=== PATIENT | female | born 1985 | race Caucasian/White ===

== ENCOUNTER 2018-02-25 11:50 | Emergency (ER) | payer OTHER, MEDICAID ==
--- NOTE | 2018-02-25 13:13 | ER Document Report ---
ED Headache - General Chief Complaint: Headache Stated Complaint: HEADACHE Time Seen by Provider: 02/25/18 13:12 TRAVEL OUTSIDE OF THE [place] IN LAST 30 DAYS: No - Related Data Allergies/Adverse Reactions: bee stings Allergy (Severe, Uncoded 02/25/18 11:51) Shortness of Breath seasonal Allergy (Severe, Uncoded 02/25/18 11:51) sinuses Past Medical History - Past Medical History Cardiac Medical History: Denies: Hx Coronary Artery Disease, Hx Heart Attack, Hx Hypertension, Hx Pulmonary Embolism, Hx Heart Murmur Pulmonary Medical History: Denies: Hx Asthma, Hx Bronchitis, Hx COPD, Hx Pneumonia, Hx Sleep Apnea, Hx Tuberculosis Neurological Medical History: Reports: Hx Seizures - last 2000. Denies: Hx Cerebrovascular Accident Endocrine Medical History: Reports: Hx Hypothyroidism. Denies: Hx Hyperthyroidism Renal/ Medical History: Denies: Hx Kidney Stones, Hx Ovarian Cysts, Hx Pelvic Inflammatory Disease Malignancy Medical History: Denies: Hx Breast Cancer, Hx Cervical Cancer, Hx Ovarian Cancer GI Medical History: Denies: Hx Gastroesophageal Reflux Disease, Hx Hiatal Hernia , Hx Ulcer Musculoskeletal Medical History: Denies Hx Arthritis, Denies Hx Fibromyalgia Psychiatric Medical History: Denies: Hx Bipolar Disorder, Hx Depression, Hx Post Traumatic Stress Disorder , Hx Schizophrenia Traumatic Medical History: Denies: Hx Fractures Infectious Medical History: Denies: Hx HIV Past Surgical History: Denies: Hx Hysterectomy - Immunizations Hx Diphtheria, Pertussis, Tetanus Vaccination: Yes Physical Exam - Vital signs Vitals: Temp Pulse Resp BP Pulse Ox 97.7 F 74 18 143/91 H 100 02/25/18 11:59 02/25/18 11:59 02/25/18 11:59 02/25/18 11:59 02/25/18 11:59 Course - Vital Signs Vital signs: Temp Pulse Resp BP Pulse Ox 97.7 F 74 18 143/91 H 100 02/25/18 11:59 02/25/18 11:59 02/25/18 11:59 02/25/18 11:59 02/25/18 11:59 Discharge - Discharge Referrals: SEYMOUR GOODE PA-C [Primary Care Provider] - Follow up as needed
--- NOTE | 2018-02-25 13:21 | ER Document Report ---
ED Medical Screen (RME) - General Chief Complaint: Headache Stated Complaint: HEADACHE Time Seen by Provider: 02/25/18 13:12 Notes: 32-year-old female complaining of headache frontal region. Symptoms have been present now for 3 days. Went to primary care doctor and was sent here for evaluation and a head CT. Patient states that she has never had a headache like this before. Does get headaches but usually she is able to treat it with 1600 mg of ibuprofen. She states that the headache is not the worst headache of her life but it is the only time she has not been able to get a headache to go away with ibuprofen. Also states that she has had several mosquito bites and has been a little dizzy and unsteady on her feet. I have greeted and performed a rapid initial assessment of this patient. A comprehensive ED assessment and evaluation of the patient, analysis of test results and completion of the medical decision making process will be conducted by additional ED providers. TRAVEL OUTSIDE OF THE [place] IN LAST 30 DAYS: No - Related Data Allergies/Adverse Reactions: bee stings Allergy (Severe, Uncoded 02/25/18 11:51) Shortness of Breath seasonal Allergy (Severe, Uncoded 02/25/18 11:51) sinuses Past Medical History - Past Medical History Cardiac Medical History: Denies: Hx Coronary Artery Disease, Hx Heart Attack, Hx Hypertension, Hx Pulmonary Embolism, Hx Heart Murmur Pulmonary Medical History: Denies: Hx Asthma, Hx Bronchitis, Hx COPD, Hx Pneumonia, Hx Sleep Apnea, Hx Tuberculosis Neurological Medical History: Reports: Hx Seizures - last 2000. Denies: Hx Cerebrovascular Accident Endocrine Medical History: Reports: Hx Hypothyroidism. Denies: Hx Hyperthyroidism Renal/ Medical History: Denies: Hx Kidney Stones, Hx Ovarian Cysts, Hx Pelvic Inflammatory Disease Malignancy Medical History: Denies: Hx Breast Cancer, Hx Cervical Cancer, Hx Ovarian Cancer GI Medical History: Denies: Hx Gastroesophageal Reflux Disease, Hx Hiatal Hernia , Hx Ulcer Musculoskeltal Medical History: Denies Hx Arthritis, Denies Hx Fibromyalgia Psychiatric Medical History: Denies: Hx Bipolar Disorder, Hx Depression, Hx Post Traumatic Stress Disorder , Hx Schizophrenia Traumatic Medical History: Denies: Hx Fractures Infectious Medical History: Denies: Hx HIV Past Surgical History: Denies: Hx Hysterectomy - Immunizations Hx Diphtheria, Pertussis, Tetanus Vaccination: Yes Physical Exam - Vital signs Vitals: Temp Pulse Resp BP Pulse Ox 97.7 F 74 18 143/91 H 100 02/25/18 11:59 02/25/18 11:59 02/25/18 11:59 02/25/18 11:59 02/25/18 11:59 Course - Vital Signs Vital signs: Temp Pulse Resp BP Pulse Ox 97.7 F 74 18 143/91 H 100 02/25/18 11:59 02/25/18 11:59 02/25/18 11:59 02/25/18 11:59 02/25/18 11:59 Doctor's Discharge - Discharge Referrals: SEYMOUR GOODE PA-C [NO LOCAL MD] - Follow up as needed
[2018-02-25 14:10] LABS: ABSOLUTE BASOPHILS # (AUTO) 0.1 10^3/uL (0.0-0.2); ABSOLUTE LYMPHOCYTES (AUTO) 2.1 10^3/uL (0.5-4.7); ABSOLUTE MONOCYTES (AUTO) 0.7 10^3/uL (0.1-1.4); ABSOLUTE NEUT (AUTO) 5.4 10^3/uL (1.7-8.2); BASOPHILS % (AUTO) 0.7 % (0-2); EOSINOPHILS % (AUTO) 0.4 % (0-6); HEMATOCRIT 38.2 % (36.0-47.0); HEMOGLOBIN 12.8 g/dL (12.0-15.5); LYMPHOCYTES % (AUTO) 25.2 % (13-45); MEAN CORPUSCULAR HEMOGLOBIN 29.9 pg (27.0-33.4); MEAN CORPUSCULAR HGB CONC 33.6 g/dL (32.0-36.0); MEAN CORPUSCULAR VOLUME 89 fl (80-97); PLATELET COUNT 290 10^3/uL (150-450); RED BLOOD COUNT 4.29 10^6/uL (3.72-5.28); RED CELL DISTRIBUTION WIDTH 13.4 % (11.5-14.0); SEGMENTED NEUTROPHILS % (AUTO) 65.7 % (42-78); TOTAL CELLS COUNTED % (AUTO) 100 %; WHITE BLOOD COUNT 8.2 10^3/uL (4.0-10.5)
--- NOTE | 2018-02-25 14:13 | RADIOLOGY REPORT (SQ) ---
EXAM DESCRIPTION: CT HEAD WITHOUT COMPLETED DATE/TIME: 02/25/2018 2:03 pm REASON FOR STUDY: headache, dizziness, bug bites COMPARISON: None. TECHNIQUE: Axial images acquired through the brain without intravenous contrast. Images reviewed wi th bone, brain and subdural windows. Additional sagittal and coronal reconstructions were generated. Images stored on PACS. All CT scanners at this facility use dose modulation, iterative reconstruction, and/or weight based d osing when appropriate to reduce radiation dose to as low as reasonably achievable (ALARA). [facility]: Dose Right [facility]: CareDose [facility]: Dose Right [facility]: Teradose 4D [facility]: Smart [employer] RADIATION DOSE: CT Rad equipment meets quality standard of care and radiation dose reduction techniq ues were employed. CTDIvol: 53.2 mGy. DLP: 1017 mGy-cm. mGy. LIMITATIONS: None. FINDINGS: VENTRICLES: Normal size and contour. CEREBRUM: No masses. No hemorrhage. No midline shift. No evidence for acute infarction. Normal gra y/white matter differentiation. No areas of low density in the white matter. CEREBELLUM: No masses. No hemorrhage. No alteration of density. No evidence for acute infarction. EXTRAAXIAL SPACES: No fluid collections. No masses. ORBITS AND GLOBE: No intra- or extraconal masses. Normal contour of globe without masses. CALVARIUM: No fracture. PARANASAL SINUSES: No fluid or mucosal thickening. SOFT TISSUES: No mass or hematoma. OTHER: No other significant finding. IMPRESSION: NORMAL BRAIN CT WITHOUT CONTRAST. EVIDENCE OF ACUTE STROKE: NO. COMMENT: Quality ID # [id number]: Final reports with documentation of one or more dose reduction techniques (e.g., Automated exposure control, adjustment of the mA and/or kV according to patient size, use of iterative reconstruction technique) TECHNICAL DOCUMENTATION: JOB ID: [id number] [employer]- All Rights Reserved Reading location - IP/workstation name: [email or web address]
[2018-02-25 14:16] LABS: APPEARANCE,URINE SLIGHTLY-CLOUDY; BILIRUBIN,URINE NEGATIVE (NEGATIVE); COLOR,URINE YELLOW; GLUCOSE, URINE NEGATIVE (NEGATIVE); KETONES,URINE NEGATIVE (NEGATIVE); LEUKOCYTE ESTERASE,URINE NEGATIVE (NEGATIVE); NITRITE,URINE NEGATIVE (NEGATIVE); PROTEIN,URINE NEGATIVE (NEGATIVE); UROBILINOGEN,URINE NEGATIVE mg/dL (<2.0)
[2018-02-25 14:41] LABS: ALANINE AMINOTRANSFERASE 22 U/L (9-52); ALBUMIN 4.2 g/dL (3.5-5.0); ALKALINE PHOSPHATASE 71 U/L (38-126); ANION GAP 9 (5-19); ASPARTATE AMINO TRANSFERASE 21 U/L (14-36); BILIRUBIN,DIRECT 0.3 mg/dL (0.0-0.4); BILIRUBIN,TOTAL 0.5 mg/dL (0.2-1.3); BLOOD UREA NITROGEN 12 mg/dL (7-20); CALCIUM 8.9 mg/dL (8.4-10.2); CARBON DIOXIDE 28 mmol/L (22-30); CHLORIDE 103 mmol/L (98-107); GLUCOSE 87 mg/dL (75-110); SODIUM 140.3 mmol/L (137-145); TOTAL PROTEIN 7.2 g/dL (6.3-8.2)
--- NOTE | 2018-02-25 15:54 | ER Document Report ---
ED Headache - General Chief Complaint: Headache Stated Complaint: HEADACHE Time Seen by Provider: 02/25/18 13:12 Mode of Arrival: Ambulatory Information source: Patient Notes: 31-year-old female presented to ED for complaint of headaches start in the front of her head and go across the top of her head. She states she has been having the headaches now off and on for 3 days. She went to her primary care doctor who sent her to the ER for head CT. She states she has never had a headache like this before. She states she just is normal regular headaches. She states she took 1600 mg of ibuprofen this morning. She states she is already been told several times not to take that much of her again. She states she felt a little dizzy and unsteady on her feet. But she was alert and oriented pupils equal and react to light and steady on her feet when I assessed her. TRAVEL OUTSIDE OF THE [place] IN LAST 30 DAYS: No - HPI Patient complains to provider of: Headache Patient reports: Prior neurologic eval - She used to go to a neurologist for seizures in 2000 but has not been back since then has not had any seizures since then., Other - States she has frequent headaches but they are normal headaches. Onset: Other - We days Onset was: Other - Intermittent Timing: Still present Quality of pain: Sharp, Throbbing Severity: Moderate Pain Level: 3 Associated symptoms: Dizzy. denies: Speech problems, Stiff neck Exacerbated by: Light, Noise, Movement Similar symptoms previously: Yes Recently seen / treated by doctor: Yes - Related Data Allergies/Adverse Reactions: bee stings Allergy (Severe, Uncoded 02/25/18 11:51) Shortness of Breath seasonal Allergy (Severe, Uncoded 02/25/18 11:51) sinuses Past Medical History - General Information source: Patient - Social History Smoking Status: Former Smoker Cigarette use (# per day): No Chew tobacco use (# tins/day): No Smoking Education Provided: No Frequency of alcohol use: Social Drug Abuse: None Occupation: ldr rn Lives with: Family Family History: Reviewed & Not Pertinent Patient has suicidal ideation: No Patient has homicidal ideation: No - Past Medical History Cardiac Medical History: Reports: None Pulmonary Medical History: Reports: None EENT Medical History: Reports: Eyes - Corneal erosion Neurological Medical History: Reports: Hx Seizures - last 2000 Endocrine Medical History: Reports: Hx Hypothyroidism Renal/ Medical History: Reports: None Malignancy Medical History: Reports: Other - thyroid dcancer GI Medical History: Reports: Other Musculoskeletal Medical History: Reports None Skin Medical History: Reports None Psychiatric Medical History: Reports: None Traumatic Medical History: Reports: None Past Surgical History: Reports: Hx Section, Hx Oral Surgery - [place] teeth, Hx Thyroid Surgery - I were removed due to thyroid cancer, Other - Lymph node removed - Immunizations Immunizations up to date: Yes Hx Diphtheria, Pertussis, Tetanus Vaccination: Yes Review of Systems - Review of Systems Constitutional: No symptoms reported EENT: No symptoms reported Cardiovascular: Dizziness Respiratory: No symptoms reported Gastrointestinal: Nausea Genitourinary: No symptoms reported Female Genitourinary: No symptoms reported Musculoskeletal: No symptoms reported Skin: No symptoms reported Hematologic/Lymphatic: No symptoms reported Neurological/Psychological: Headaches -: Yes All other systems reviewed and negative Physical Exam - Vital signs Vitals: Temp Pulse Resp BP Pulse Ox 97.7 F 74 18 143/91 H 100 02/25/18 11:59 02/25/18 11:59 02/25/18 11:59 02/25/18 11:59 02/25/18 11:59 Interpretation: Normal - General General appearance: Appears well, Alert - HEENT Head: Normocephalic, Atraumatic Eyes: Normal Pupils: PERRL Visual larson normal: Yes Ears: Normal External canal: Normal Tympanic membrane: Normal Sinus: Normal Nasal: Normal Mouth/Lips: Normal Mucous membranes: Normal Pharynx: Normal Neck: Normal - Respiratory Respiratory status: No respiratory distress Chest status: Nontender Breath sounds: Normal Chest palpation: Normal - Cardiovascular Rhythm: Regular Heart sounds: Normal auscultation Murmur: No - Abdominal Inspection: Normal Distension: No distension Bowel sounds: Normal Tenderness: Nontender Organomegaly: No organomegaly - Back Back: Normal, Nontender - Extremities General upper extremity: Normal inspection, Nontender, Normal color, Normal ROM , Normal temperature General lower extremity: Normal inspection, Nontender, Normal color, Normal ROM , Normal temperature, Normal weight bearing. No: Rema's sign - Neurological Neuro grossly intact: Yes Cognition: Normal Orientation: AAOx4 [place] Coma Scale Eye Opening: Spontaneous Fang Coma Scale Verbal: Oriented Fang Coma Scale Motor: Obeys Commands [place] Coma Scale Total: 15 Speech: Normal Cranial nerves: Normal Motor strength normal: LUE, RUE, LLE, RLE Additional motor exam normals: Equal acid correction hand Babinski reflex: Normal (flexor plantar) Sensory: Normal Biceps - Reflex grade: 2 = Normal Triceps - Reflex grade: 2 = Normal Brachioradialis - Reflex grade: 2 = Normal Ankle - Reflex grade: 2 = Normal - Psychological Associated symptoms: Normal affect, Normal mood - Skin Skin Temperature: Warm Skin Moisture: Dry Skin Color: Normal Course - Re-evaluation Re-evalutation: 02/25/18 16:08 Patient stated that she just needed something for her headache as long as her labs and CT were negative. 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 I offered the patient comes in Benadryl and Toradol IV if she could get a driver license examiner. She states she does not have a driver license examiner she needs some she can take home. I wrote her prescription for Compazine with instructions to take it with Benadryl and ibuprofen. I instructed her to please return to the ED if this did not relieve her headache. Patient verbalized understanding of instruction and agreement with treatment plan. - Vital Signs Vital signs: Temp Pulse Resp BP Pulse Ox 97.7 F 74 18 143/91 H 100 02/25/18 11:59 02/25/18 11:59 02/25/18 11:59 02/25/18 11:59 02/25/18 11:59 - Laboratory Result Diagrams: 02/25/18 13:47 02/25/18 13:47 - Diagnostic Test Radiology reviewed: Image reviewed, Reports reviewed Discharge - Discharge Clinical Impression: Headache Qualifiers: Headache type: unspecified Headache chronicity pattern: chronic headache Intractability: not intractable Qualified Code(s): R51 - Headache Condition: Stable Disposition: HOME, SELF-CARE Instructions: Use of Noce-Bom-Fdtyqcn Ibuprofen ([facility]) Additional Instructions: HEADACHE: The physician does not feel that the headache you are experiencing has a serious underlying cause. Most headaches are due to emotional stress, with resultant muscle tension (tension headache). Occasionally, headaches are secondary to changes in the blood vessels of the scalp (vascular headache and migraine headache). Sometimes, a headache is the first symptom of another developing illness, such as a viral infection. You have no evidence of stroke, bleeding, meningitis, or other serious cause of your headache. The treatment of headaches varies with the severity and cause of the pain. Not all headaches need pain shots. In fact, there is evidence that using narcotics for headaches may make them worse in the long run. The physician will determine the therapy that's in your best interest. If you develop a fever, if the headache is different from any you've previously experienced, or if the headache progressively worsens, then call your physician at once or go to the emergency room. USE OF DIPHENHYDRAMINE: Diphenhydramine (Benadryl) is an antihistamine and has been recommended to help treat your headache and to prevent side effects of other medications used to treat headaches. The medication can be repeated four times daily. Age Elixir (12.5 mg/tsp) 25 mg pill adult 1-2 tabs Antihistamines may cause drowsiness, especially with the first dose. Do not operate machinery or drive while under the effects of the medication. Do not combine the medication with alcohol, or with any other medication without talking to your doctor. ANTINAUSEA MEDICATION: You have been given a medication to suppress nausea and vomiting. This type of medication can be given as a shot, pill, or suppository. It will usually last for many hours. Pills and shots usually last six to eight hours, suppositories last about 12 hours. For the typical illness, only one or two doses of the medication may be necessary. Mild lightheadedness may occur. This type of medicine can cause drowsiness. Do not drive or operate dangerous machinery while under its influence. Do not mix with alcohol. See your doctor at once if you have muscle spasms or tightness, or uncontrollable motions (particularly of the neck, mouth, or jaw). Persistent vomiting or severe lightheadedness should also be evaluated by the physician. COMPAZINE FOR HEADACHE: You have received therapy for headaches, using Compazine. This treatment is dramatically successful in relieving the headache in about 50 percent of cases. When it works, it provides a rapid method of eliminating the headache without resorting to narcotics (and the problems associated with them). Most patients still feel fully alert after the Compazine, but others may be slightly drowsy. It's best not to drive or work with machinery for six to eight hours. Do not take alcohol or other medication unless you discuss it with the doctor. If you develop tightness and spasms in your muscles, especially the neck and tongue, you should return. This is a side effect which can be treated. Please did not ever take more than 800 mg of ibuprofen at a time and no more than 2400 mg in a 24 hour. FOLLOW-UP CARE: If you have been referred to a physician for follow-up care, call the physician s office for an appointment as you were instructed or within the next two days. If you experience worsening or a significant change in your symptoms, notify the physician immediately or return to the Emergency Department at any time for re-evaluation. Prescriptions: Prochlorperazine Maleate [Compazine 10 mg Tablet] 10 mg PO Q6HP PRN #10 tablet PRN Reason: Forms: Elevated Blood Pressure, Return to Work Referrals: SEYMOUR GOODE PA-C [NO LOCAL MD] - Follow up in 3-5 days
[2018-02-25 16:01] VITALS: BP 124/83
== END 2018-02-25 16:04 | disposition home or self-care (01) ==
LOC: ER 11:50
DX: R51 Headache (principal); R42 Dizziness and giddiness
CPT/HCPCS: 36415; 70450; 80053; 81001; 81025; 85025; 99284

== ENCOUNTER → 2019-01-06 | Outpatient (CLI) | payer OTHER, MEDICAID ==
--- NOTE | 2019-01-06 16:28 | RADIOLOGY REPORT (SQ) ---
EXAM DESCRIPTION: LUMBAR SPINE COMPLETE COMPLETED DATE/TIME: 01/06/2019 3:44 pm REASON FOR STUDY: NECK PAIN;THORACIC BACK PAIN;CHRONIC LBP WITH BILATERAL SCIATICA M54.2 CERVICALGI A M54.41 LUMBAGO WITH SCIATICA, RIGHT SIDE M54.6 PAIN IN THORACIC SPINE COMPARISON: None. NUMBER OF VIEWS: Five views including obliques. TECHNIQUE: AP, lateral, oblique, and sacral radiographic images acquired of the lumbar spine. LIMITATIONS: None. FINDINGS: MINERALIZATION: Normal. SEGMENTATION: Normal. No transitional anatomy. ALIGNMENT: Normal. VERTEBRAE: Maintained height. No fracture or worrisome bone lesion. DISCS: Disc space loss of height at L5-S1 with vertebral body endplate sclerosis. POSTERIOR ELEMENTS: Question Bilateral L5 spondylolysis without listhesis HARDWARE: None in the spine. PARASPINAL SOFT TISSUES: Normal. PELVIS: SI joints are intact OTHER: No other significant finding. IMPRESSION: Degenerative disc changes at L5-S1. Question bilateral spondylolysis at S1 TECHNICAL DOCUMENTATION: JOB ID: [id number] [employer]- All Rights Reserved Reading location - IP/workstation name: [email or web address]
--- NOTE | 2019-01-06 16:29 | RADIOLOGY REPORT (SQ) ---
EXAM DESCRIPTION: C SP 4 OR 5 VIEWS COMPLETED DATE/TIME: 01/06/2019 3:43 pm REASON FOR STUDY: NECK PAIN;THORACIC BACK PAIN;CHRONIC LBP WITH BILATERAL SCIATICA M54.2 CERVICALGI A M54.41 LUMBAGO WITH SCIATICA, RIGHT SIDE M54.6 PAIN IN THORACIC SPINE COMPARISON: Thoracic spine films same date NUMBER OF VIEWS: Five views. TECHNIQUE: AP, lateral, obliques and odontoid radiographic images acquired of the cervical spine. LIMITATIONS: None. FINDINGS: MINERALIZATION: Normal. ALIGNMENT: Anatomic. VERTEBRAE: Vertebral bodies of normal height. DISCS: No significant osteophytes or sclerosis. Disc height maintained. FORAMINA: No osteophytes or foraminal narrowing. LATERAL AND POSTERIOR ELEMENTS: Facets, lateral masses and spinous processes without significant find ings. HARDWARE: None in the spine. SOFT TISSUES: No masses or calcifications. Lung apices clear. OTHER: No other significant finding. IMPRESSION: NO SIGNIFICANT RADIOGRAPHIC FINDING IN THE CERVICAL SPINE. TECHNICAL DOCUMENTATION: JOB ID: [id number] [employer]- All Rights Reserved Reading location - IP/workstation name: [email or web address]
--- NOTE | 2019-01-06 16:29 | RADIOLOGY REPORT (SQ) ---
EXAM DESCRIPTION: T SPINE AP/LAT COMPLETED DATE/TIME: 01/06/2019 3:44 pm REASON FOR STUDY: NECK PAIN;THORACIC BACK PAIN;CHRONIC LBP WITH BILATERAL SCIATICA M54.2 CERVICALGI A M54.41 LUMBAGO WITH SCIATICA, RIGHT SIDE M54.6 PAIN IN THORACIC SPINE COMPARISON: None. NUMBER OF VIEWS: Two views. TECHNIQUE: AP and lateral radiographic images acquired of the thoracic spine. LIMITATIONS: None. FINDINGS: MINERALIZATION: Normal. ALIGNMENT: Normal. No scoliosis. VERTEBRAE: No fracture or bone lesion. Maintained height, normal segmentation. DISCS: No significant loss of height or significant narrowing. No large osteophytes. HARDWARE: None in the spine. MEDIASTINUM AND SOFT TISSUES: Normal heart size and aortic contour. No soft tissue abnormality. VISUALIZED LUNG SUAZO: Clear. OTHER: No other significant finding. IMPRESSION: NO SIGNIFICANT RADIOGRAPHIC FINDING IN THE THORACIC SPINE. TECHNICAL DOCUMENTATION: JOB ID: [id number] [employer]- All Rights Reserved Reading location - IP/workstation name: [email or web address]
== END ==
LOC: OD 14:06
PROVIDERS: ATTEND Family Medicine
DX: M54.2 Cervicalgia (principal); M51.17 Intervertebral disc disorders with radiculopathy, lumbosacral region; M54.6 Pain in thoracic spine
CPT/HCPCS: 72050; 72070; 72110

== ENCOUNTER → 2019-06-03 | Outpatient (CLI) | payer OTHER, MEDICAID ==
[2019-06-03 19:39] LABS: FREE T3 3.68 pg/mL (2.77-5.27); FREE T4 (FREE THYROXINE) 1.14 ng/dL (0.78-2.19)
[2019-06-03 19:52] LABS: THYROID STIMULATING HORMONE 0.35 uIU/mL (0.47-4.68)
== END ==
LOC: OD 16:53
PROVIDERS: ATTEND Specialist
DX: R41.3 Other amnesia (principal)
CPT/HCPCS: 36415; 82607; 82746; 84439; 84443; 84481

== ENCOUNTER 2019-07-10 05:36 | Day surgery (SDC) | payer OTHER, MEDICAID ==
[2019-07-08 10:37] LABS: HEMATOCRIT 41.2 % (36.0-47.0); MEAN CORPUSCULAR HEMOGLOBIN 30.4 pg (27.0-33.4); MEAN CORPUSCULAR HGB CONC 34.1 g/dL (32.0-36.0); MEAN CORPUSCULAR VOLUME 89 fl (80-97); PLATELET COUNT 248 10^3/uL (150-450); RED BLOOD COUNT 4.62 10^6/uL (3.72-5.28); RED CELL DISTRIBUTION WIDTH 13.2 % (11.5-14.0); WHITE BLOOD COUNT 7.3 10^3/uL (4.0-10.5)
[2019-07-08 10:49] LABS: APPEARANCE,URINE CLEAR; BILIRUBIN,URINE NEGATIVE (NEGATIVE); COLOR,URINE STRAW; GLUCOSE, URINE NEGATIVE (NEGATIVE); KETONES,URINE NEGATIVE (NEGATIVE); LEUKOCYTE ESTERASE,URINE NEGATIVE (NEGATIVE); NITRITE,URINE NEGATIVE (NEGATIVE); PROTEIN,URINE NEGATIVE (NEGATIVE); URINE SPECIFIC GRAVITY 1.004; UROBILINOGEN,URINE NEGATIVE mg/dL (<2.0)
[2019-07-08 10:56] LABS: ALBUMIN 4.7 g/dL (3.5-5.0); ALKALINE PHOSPHATASE 73 U/L (38-126); ANION GAP 10 (5-19); ASPARTATE AMINO TRANSFERASE 21 U/L (14-36); BILIRUBIN,DIRECT 0.1 mg/dL (0.0-0.4); BILIRUBIN,TOTAL 0.4 mg/dL (0.2-1.3); BLOOD UREA NITROGEN 11 mg/dL (7-20); CALCIUM 9.6 mg/dL (8.4-10.2); CARBON DIOXIDE 27 mmol/L (22-30); CHLORIDE 102 mmol/L (98-107); GLUCOSE 72 mg/dL (75-110); TOTAL PROTEIN 7.9 g/dL (6.3-8.2)
[~2019-07-10 05:36] MED LIST: CEFAZOLIN 1 GM/D5W RTU 1 GM/50 ML RTUPB IV PRN; CEFAZOLIN SODIUM 2 GM in DEXTROSE 5%-WATER 100 ML IV PRN; DEXAMETHASONE SOD PHOSPHATE INJ 4 MG/1 ML VIAL ONE; GLYCOPYRROLATE 1 MG/5 ML VIAL ONE; KETOROLAC TROMETHAMINE 60 MG/2 ML SDV ONE; LACTATED RINGERS 1000 ML IV PRN; LIDOCAINE 0.5% INJ-PF (5 MG/ML) 50 ML SDV SUBCUT PRN; MAGNESIUM CITRATE 296 ML BOTTLE PO PRN; NEOSTIGMINE METHYLSULFATE 10 MG/10 ML VIAL ONE; ONDANSETRON HCL INJ/PF 4 MG/2 ML SDV ONE; ROCURONIUM BROMIDE INJ 50 MG/5 ML VIAL IV ONE
[2019-07-10] MEDS ORDERED: FENTANYL CITRATE INJ/PF 100 MCG/2 ML AMPUL ONE (06:40)
[2019-07-10] MEDS ORDERED: HYDROMORPHONE HCL INJ/PF 2 MG/ML AMPULE ONE (06:40)
[2019-07-10] MEDS ORDERED: MIDAZOLAM 2 MG/2 ML INJ ONE ×2 (06:41→07:04)
[2019-07-10] MEDS ORDERED: PROPOFOL INJ 200 MG/20 ML VIAL IV ONE (06:41)
[2019-07-10] MEDS ORDERED: SCOPOLAMINE HYDROBROMIDE 1.5 MG PATCH.TD72 ONE (07:04)
[2019-07-10] MEDS ORDERED: CEFAZOLIN 1 GM/D5W RTU 1 GM/50 ML RTUPB IV ONE (07:05)
[2019-07-10] MEDS ORDERED: FAMOTIDINE INJ/PF 20 MG/2 ML SDV IV ONE (07:05)
[2019-07-10] MEDS ORDERED: METHYLENE BLUE 50 MG/10 ML AMPULE ONE (08:58)
[2019-07-10] MEDS ORDERED: PROMETHAZINE HCL INJ 25 MG/1 ML VIAL IV PRN ×4 (09:42→14:30)
[2019-07-10] MEDS ORDERED: ACETAMINOPHEN 1,000 MG/100 ML RTUPB IV PRN (09:42)
[2019-07-10] MEDS ORDERED: RINGERS SOLUTION,LACTATED 1,000 ML IV PRN (09:42)
[2019-07-10] MEDS ORDERED: MORPHINE SULFATE 10 MG/ML INJ IV PRN ×2 (09:42→09:58)
[2019-07-10] MEDS ORDERED: OXYCODONE-ACETAMINOPHEN 5-325 MG TABLET PO PRN ×2 (09:42)
[2019-07-10] MEDS ORDERED: ACETAMINOPHEN 325 MG TABLET PO PRN (09:42)
[2019-07-10] MEDS ORDERED: SIMETHICONE 80 MG TAB.CHEW PO PRN ×2 (09:42→14:30)
--- NOTE | 2019-07-10 09:57 | Operative Report ---
Operative Report DATE OF SURGERY: 07/10/19 PREOPERATIVE DIAGNOSIS: abnormal uterine bleeding, polycystic ovarian syndrome, pelvic pain POSTOPERATIVE DIAGNOSIS: same OPERATION: Robotic assisted total laparoscopic hysterectomy with bilateral salpingo-oophorectomy and lysis of adhesions SURGEON: RENETTA MORRIS 1ST METAL TILE LATHER: FRANCESCA IGLESIAS ANESTHESIA: GA TISSUE REMOVED OR ALTERED: Uterus cervix bilateral fallopian tubes and ovaries COMPLICATIONS: None ESTIMATED BLOOD LOSS: 100 cc INTRAOPERATIVE FINDINGS: Omental adhesions to the anterior abdominal wall and anterior cul-de-sac PROCEDURE: Patient was taken to the operating room prepared and draped in normal sterile fashion in dorsolithotomy position. Under sterile conditions a Linares catheter was placed to gravity. Speculum was placed into the vagina and the cervix was grasped on the anterior lip with a single-tooth tenaculum. The cervix was then dilated to accommodate a medium V care uterine manipulator. Manipulate it was placed gloves were changed and attention was turned to the upper portion of the case. A 2-1/2 cm umbilical skin incision was made 11 blade and this was carried through to the underlying layer of fascia with the same 11 blade. It was grasped to Vivian's acted with Cevallos's. New cavity was entered bluntly. A GelPort was placed in a normal fashion the camera port and air seal in the appropriate locations. Pneumoperitoneum was then inflated with approximately 2 L of CO2 gas. The camera was then introduced into the peritoneal cavity through the camera port and the patient was placed in steep Trendelenburg. The above findings were noted. Under direct visualization two 5 mm ports were placed approximately 10 cm on either side of the umbilicus. The robot was then docked with the vessel sealer placed on the patient's left and the monopolar scissors placed placed on the patient's right. I then unscrubbed and set at the robotic console beginning with the left adnexa IP ligament was transected from the sidewall using the vessel sealer and monopolar scissors as needed. The uterine artery was skeletonized using sharp and blunt dissection and ligated using the vessel sealer down to the level of the external cervical os. The bladder flap was then begun using monopolar scissors and blunt dissection over the V care cup noted through the mucosa. Attention was then turned to the right adnexa where the ovary was transected in a similar fashion. The Uterine artery was then transecte d using the vessel sealer and skeletonized using sharp and blunt dissection. The vessel sealer was again used to completely transect the uterine artery down to the level of the external cervical os. The bladder flap was completed using similar sharp and blunt dissection. Once the bladder was felt to be adequately away from the lower uterine segment, the colpotomy was begun on the posterior aspect of the cervix following the outline of the V care cup through the mucosa. The cup was followed in a circumferential fashion completely around the cervix until the specimen was completely freed. The specimen was then removed through the vaginal defect. The instruments were then changed to a Kameron needle pile driver operator and pro-grasp. AV lock needle was introduced through the assistance port. The lock needle was used to close the vaginal cuff and hemostasis. The needle was then removed through the assistance port. It was noted around this time that there was blood in the linares catheter. Steps were taken to locate the source of the blood. Inspection of the ureters was maintained laparoscopically x 20-25 minutes with adequate peristalsis and no evidence of hydroureter. During the surveillance of the ureters, we back flilled the linares with metaline blue and surveyed the bladder carefully. There was a total of 180 cc of blue tinged sterile water filled into the bladder. Normal bladder distention was noted but no evidence of leakage was observed. The peritoneal cavity was carefully inspected again and the ureters were noted to both be peristalsing and there was again no signs of hydroureter. The robot was then undocked. The fascia was closed at the umbilical skin incision seen 0 Vicryl 3 skin incisions were closed using 4-0 Vicryl. Sponge lap and needle counts were correct x2 and the patient was taken to recovery in stable condition. Linares catheter will remain to observe for further evidence of possible bladder injury however, it is felt that likely the urethra may have been abraded during removal of the specimen which normally will resolved on it's own.
[2019-07-10] MEDS ORDERED: DIPHENHYDRAMINE HCL 50 MG/ML VIAL IV PRN (09:58)
[2019-07-10] MEDS ORDERED: MEPERIDINE HCL/PF INJ 25 MG/1 ML DISP.SYRIN IV PRN (09:58)
[2019-07-10] MEDS ORDERED: FENTANYL CITRATE INJ/PF 100 MCG/2 ML AMPUL IV PRN ×3 (09:58)
[2019-07-10] MEDS: FENTANYL CITRATE INJ/PF 100 MCG/2 ML AMPUL ONE ×2 (10:10→10:20)
[2019-07-10] MEDS ORDERED: PROMETHAZINE HCL INJ 25 MG/1 ML VIAL ONE (10:53)
[2019-07-10] MEDS ORDERED: MORPHINE SULFATE 10 MG/ML INJ ONE (11:08)
[2019-07-10] MEDS ORDERED: KETOROLAC TROMETHAMINE INJ/PF 30 MG/1 ML SDV IV SCH (14:00)
[2019-07-10] MEDS: DOCUSATE SODIUM 100 MG CAPSULE PO SCH ×2 (14:29→17:22)
[2019-07-10] MEDS: KETOROLAC TROMETHAMINE INJ/PF 30 MG/1 ML SDV IV SCH (17:22)
[2019-07-11] MEDS: KETOROLAC TROMETHAMINE INJ/PF 30 MG/1 ML SDV IV SCH (02:39)
[2019-07-11 06:06] LABS: HEMATOCRIT 30.9 % (36.0-47.0); MEAN CORPUSCULAR HEMOGLOBIN 31.1 pg (27.0-33.4); MEAN CORPUSCULAR HGB CONC 35.1 g/dL (32.0-36.0); MEAN CORPUSCULAR VOLUME 89 fl (80-97); PLATELET COUNT 211 10^3/uL (150-450); RED BLOOD COUNT 3.49 10^6/uL (3.72-5.28); RED CELL DISTRIBUTION WIDTH 13.3 % (11.5-14.0); WHITE BLOOD COUNT 10.5 10^3/uL (4.0-10.5)
[2019-07-11 06:07] LABS: HEMOGLOBIN 10.8 g/dL (12.0-15.5)
--- NOTE | 2019-07-11 07:47 | PDOC DISCHARGE SUMMARY ---
Impression - Admit/DC Date/PCP Admission Date/Primary Care Provider: JOHNATHAN HEBERT DO Discharge Date: 07/11/19 - Discharge Diagnosis (1) Abnormal uterine and vaginal bleeding, unspecified Is this a current diagnosis for this admission?: Yes (2) Pelvic pain Is this a current diagnosis for this admission?: Yes (3) Polycystic ovarian syndrome Is this a current diagnosis for this admission?: Yes - Assessment Summary: patient underwent a RATLH w/ BSO and ZABRINA. Unremarkable post operative course. Is now tolerating a regular diet and voiding normally. Would like cepachol lozenges for sore throat and is electing to proceed with hrt now. Will discharge home with such. - Additional Information Discharge Diet: As Tolerated Discharge Activity: Balance Activity w/Rest, No Driving, No Lifting Over 10 Pounds, No Lifting/Push/Pulling, Pelvic Rest, No tub bath, Walk Frequently Referrals: JOHNATHAN HEBERT DO [Primary Care Provider] - Prescriptions: Oxycodone HCl/Acetaminophen [Percocet 5-325 mg Tablet] 1 tab PO Q4HP PRN #30 tablet PRN Reason: Benzocaine/Menthol [Cepacol Sore Throat Lozenge] 1 each MM Q4 #60 lozenge Docusate Sodium [Colace 100 mg Capsule] 100 mg PO BID #60 capsule Estradiol 0.5 mg PO DAILY 30 Days #30 tablet Ibuprofen [Motrin 800 mg Tablet] 800 mg PO Q6 #60 tablet Home Medications: Linaclotide [Linzess] 72 mcg PO DAILY 07/08/19 Thyroid (Pork) [[place] Thyroid 60 Mg Tablet] 60 mg PO DAILY 07/08/19 Levothyroxine Sodium 75 mcg PO DAILY 07/10/19 Liraglutide [Saxenda] 1.8 mg SQ DAILY 07/10/19 Losartan Potassium 50 mg PO DAILY 07/10/19 Benzocaine/Menthol [Cepacol Sore Throat Lozenge] 1 each MM Q4 #60 lozenge 07/11/19 Docusate Sodium [Colace 100 mg Capsule] 100 mg PO BID #60 capsule 07/11/19 Estradiol 0.5 mg PO DAILY 30 Days #30 tablet 07/11/19 Ibuprofen [Motrin 800 mg Tablet] 800 mg PO Q6 #60 tablet 07/11/19 Oxycodone HCl/Acetaminophen [Percocet 5-325 mg Tablet] 1 tab PO Q4HP PRN #30 tablet 07/11/19 History of Present Illiness History of Present Illness: CARLOS ALBERTO CRESPO is a 34 year old female Physical Exam - Physical Exam Vital Signs: Temp Pulse Resp BP Pulse Ox 98.1 F 76 18 131/72 H 100 07/11/19 04:47 07/11/19 04:47 07/11/19 04:47 07/11/19 04:47 07/11/19 04:47 Intake & Output 07/10/19 07/11/19 07/12/19 06:59 06:59 06:59 Intake Total 5200 Output Total 2825 Balance 2375 Weight 86.18 kg 86 kg Results Laboratory Results: WBC 10.5 10^3/uL (4.0-10.5) 07/11/19 05:35 RBC 3.49 10^6/uL (3.72-5.28) L 07/11/19 05:35 Hgb 10.8 g/dL (12.0-15.5) L D 07/11/19 05:35 Hct 30.9 % (36.0-47.0) L 07/11/19 05:35 MCV 89 fl (80-97) 07/11/19 05:35 MCH 31.1 pg (27.0-33.4) 07/11/19 05:35 MCHC 35.1 g/dL (32.0-36.0) 07/11/19 05:35 RDW 13.3 % (11.5-14.0) 07/11/19 05:35 Plt Count 211 10^3/uL (150-450) 07/11/19 05:35 Sodium 138.8 mmol/L (137-145) 07/08/19 09:55 Potassium 3.9 mmol/L (3.6-5.0) 07/10/19 06:26 Chloride 102 mmol/L (98-107) 07/08/19 09:55 Carbon Dioxide 27 mmol/L (22-30) 07/08/19 09:55 Anion Gap 10 (5-19) 07/08/19 09:55 BUN 11 mg/dL (7-20) 07/08/19 09:55 Creatinine 0.85 mg/dL (0.52-1.25) 07/08/19 09:55 Est GFR ( Amer) > 60 (>60) 07/08/19 09:55 Est GFR (MDRD) Non-Af > 60 (>60) 07/08/19 09:55 Glucose 72 mg/dL (75-110) L 07/08/19 09:55 Calcium 9.6 mg/dL (8.4-10.2) 07/08/19 09:55 Total Bilirubin 0.4 mg/dL (0.2-1.3) 07/08/19 09:55 Direct Bilirubin 0.1 mg/dL (0.0-0.4) 07/08/19 09:55 Neonat Total Bilirubin Not Reportable 07/08/19 09:55 Neonat Direct Bilirubin Not Reportable 07/08/19 09:55 Neonat Indirect Bili Not Reportable 07/08/19 09:55 AST 21 U/L (14-36) 07/08/19 09:55 ALT 13 U/L (<35) 07/08/19 09:55 Alkaline Phosphatase 73 U/L (38-126) 07/08/19 09:55 Total Protein 7.9 g/dL (6.3-8.2) 07/08/19 09:55 Albumin 4.7 g/dL (3.5-5.0) 07/08/19 09:55 Urine Color STRAW 07/08/19 09:45 Urine Appearance CLEAR 07/08/19 09:45 Urine pH 7.0 (5.0-9.0) 07/08/19 09:45 Ur Specific [place] 1.004 07/08/19 09:45 Urine Protein NEGATIVE mg/dL (NEGATIVE) 07/08/19 09:45 Urine Glucose (UA) NEGATIVE mg/dL (NEGATIVE) 07/08/19 09:45 Urine Ketones NEGATIVE mg/dL (NEGATIVE) 07/08/19 09:45 Urine Blood SMALL (NEGATIVE) H 07/08/19 09:45 Urine Nitrite NEGATIVE (NEGATIVE) 07/08/19 09:45 Urine Bilirubin NEGATIVE (NEGATIVE) 07/08/19 09:45 Urine Urobilinogen NEGATIVE mg/dL (<2.0) 07/08/19 09:45 Ur Leukocyte Esterase NEGATIVE (NEGATIVE) 07/08/19 09:45 Urine RBC (Auto) 1 /HPF 07/08/19 09:45 Squamous Epi Cells Auto <1 /HPF 07/08/19 09:45 Urine Mucus (Auto) RARE /LPF 07/08/19 09:45 Urine Ascorbic Acid NEGATIVE (NEGATIVE) 07/08/19 09:45 Urine HCG, Qual NEGATIVE (NEGATIVE) 07/10/19 06:15 Blood Type O POSITIVE 07/08/19 09:55 Antibody Screen NEGATIVE 07/08/19 09:55 Stroke Is this a Stroke Patient?: No Acute Heart Failure - Is this a Heart Failure Patient?: No
[2019-07-11] MEDS: DOCUSATE SODIUM 100 MG CAPSULE PO SCH (09:52)
[2019-07-11 11:20] VITALS: BP 119/68
[2019-07-11] MEDS ORDERED: IBUPROFEN 800 MG TABLET PO SCH (12:00)
== END 2019-07-11 11:45 | disposition home or self-care (01) ==
LOC: OROUT 05:36 → 2N 12:05 → OROUT 07-11 11:45
PROVIDERS: ATTEND Obstetrics & Gynecology
DX: N80.0 Endometriosis of uterus (principal); N83.8 Other noninflammatory disorders of ovary, fallopian tube and broad ligament; E28.2 Polycystic ovarian syndrome; R10.2 Pelvic and perineal pain; N93.9 Abnormal uterine and vaginal bleeding, unspecified; K66.0 Peritoneal adhesions (postprocedural) (postinfection)
CPT/HCPCS: 58571; S2900; 36415; 80053; 81001; 81025; 840; 84132; 85027; 86850; 86900; 86901; 88307; 94799; A4649; J0131; J0690; J1100; J1170; J1885; J2250; J2270; J2405; J2550; J2704; J2710; J3010; J3490; J7120; Q9968; S0028